=== PATIENT | male | born 1935 | race Caucasian/White ===

== ENCOUNTER 2019-02-07 16:56 | Inpatient (IN) ==
[2019-02-07] MEDS ORDERED: NALOXONE 0.4 MG/ML VIAL IV PRN (17:34)
[2019-02-07] MEDS ORDERED: traMADol 50 MG TABLET PO PRN (17:34)
[2019-02-07] MEDS ORDERED: ACETAMINOPHEN 325 MG TABLET PO PRN (17:34)
[2019-02-07] MEDS ORDERED: ONDANSETRON 4 MG/2 ML VIAL IV PRN (17:34)
[2019-02-07] MEDS ORDERED: AZITHROMYCIN INJ 500 MG in SODIUM CHLORIDE 0.9% 250 ML IV ONE (17:37)
[2019-02-07] MEDS: methylPREDNISolone SOD SUC 40 MG/1 ML VIAL IV SCH (18:51)
[2019-02-07] MEDS: cefTRIAXone 1,000 MG in SYRINGE 1 EACH IV SCH (18:52)
[2019-02-07] MEDS: SODIUM CHLORIDE 0.9% 1,000 ML IV SCH (19:00)
[2019-02-07] MEDS: ALBUTEROL/IPRATROPIUM 3 ML NEB RESP TX SCH (19:40)
[2019-02-07] MEDS ORDERED: ENOXAPARIN 30 MG/0.3 ML SYRINGE SUBCUT SCH (21:00)
[2019-02-07] MEDS: DOCUSATE SODIUM 100 MG CAPSULE PO SCH (22:20)
[2019-02-08] MEDS: ALBUTEROL/IPRATROPIUM 3 ML NEB RESP TX SCH ×4 (00:45→19:26)
[2019-02-08] MEDS: ALBUTEROL 2.5 MG/3 ML NEB RESP TX PRN (04:43)
[2019-02-08] MEDS: methylPREDNISolone SOD SUC 40 MG/1 ML VIAL IV SCH ×2 (05:52→17:45)
[2019-02-08 05:53] LABS: Basophils # 0.1 10*3/uL (0.0-0.2); Basophils % 0.3 % (0.0-0.8); Hematocrit 39.4 VOL% (42.0-52.0); Hemoglobin 12.9 GM/DL (14.0-18.0); Immature Granulocytes % 0.8 %; Immature Granulocytes Absolute 0.18 #; Lymphocytes # 1.1 10*3/uL (1.4-4.0); Lymphocytes % 5.2 % (21.2-54.2); Mean Corpuscular HGB Conc 32.7 GM/DL (32-36); Mean Corpuscular Volume 92.3 FL (87-102); Mean Platelet Volume 11.4 FL (9.6-12.0); Monocytes % 6.1 % (1.7-12.7); Neutrophils % 87.6 % (38.7-73.9); Platelet Count 151 T/CUMM (130-400); Red Blood Count 4.27 MC/CUMM (3.8-5.5); White Blood Count 21.7 T/CUMM (4-12)
[2019-02-08 06:15] LABS: Band Neutrophils 1 % (0-10); Hypochromasia 1+; Lymphocytes 6 % (20-55); Platelet Estimate Adequate; Segmented Neutrophils 89 % (50-85); Total Cells Counted 100
[2019-02-08 06:17] LABS: Calcium 8.8 MG/DL (8.5-10.1); Osmolality,Calculated 284.5 MOS/KG (273-304)
[2019-02-08] MEDS: ASPIRIN EC 81 MG TABLET PO SCH (09:48)
[2019-02-08] MEDS: AMIODARONE 200 MG TABLET PO SCH (09:48)
[2019-02-08] MEDS: LOSARTAN 50 MG TABLET PO SCH (09:49)
[2019-02-08] MEDS: FINASTERIDE 5 MG TABLET PO SCH (09:49)
[2019-02-08] MEDS: DOCUSATE SODIUM 100 MG CAPSULE PO SCH ×2 (09:49→21:43)
[2019-02-08] MEDS: PANTOPRAZOLE 40 MG TABLET PO SCH (09:49)
[2019-02-08] MEDS: THEOPHYLLINE ER (24 HR) 200 MG CAPSULE PO SCH (09:50)
[2019-02-08] MEDS: MAGNESIUM OXIDE 400 MG TABLET PO SCH ×2 (09:50→21:43)
[2019-02-08] MEDS: ALFUZOSIN 10 MG TABLET PO SCH (09:50)
[2019-02-08] MEDS: MONTELUKAST 10 MG TABLET PO SCH (09:50)
[2019-02-08] MEDS: carvediloL 3.125 MG TABLET PO SCH ×2 (09:50→17:45)
[2019-02-08] MEDS: cefTRIAXone 1,000 MG in SYRINGE 1 EACH IV SCH (17:45)
[2019-02-08] MEDS: AZITHROMYCIN INJ 250 MG in SODIUM CHLORIDE 0.9% 250 ML IV SCH (17:45)
[2019-02-08] MEDS: ENOXAPARIN 40 MG/0.4 ML SYRINGE SUBCUT SCH (21:43)
[2019-02-09] MEDS: ALBUTEROL/IPRATROPIUM 3 ML NEB RESP TX SCH ×4 (00:12→20:03)
[2019-02-09 05:07] LABS: Basophils % 0.1 % (0.0-0.8); Hematocrit 38.6 VOL% (42.0-52.0); Hemoglobin 12.5 GM/DL (14.0-18.0); Immature Granulocytes % 0.7 %; Immature Granulocytes Absolute 0.13 #; Lymphocytes # 0.9 10*3/uL (1.4-4.0); Lymphocytes % 4.5 % (21.2-54.2); Mean Corpuscular HGB Conc 32.4 GM/DL (32-36); Mean Corpuscular Volume 93.2 FL (87-102); Monocytes % 5.6 % (1.7-12.7); Neutrophils % 89.1 % (38.7-73.9); Platelet Count 152 T/CUMM (130-400); Red Blood Count 4.14 MC/CUMM (3.8-5.5); White Blood Count 19.3 T/CUMM (4-12)
[2019-02-09 05:29] LABS: Hypochromasia Slight; Lymphocytes 9 % (20-55); Ovalocytes Slight; Platelet Estimate Adequate; Segmented Neutrophils 88 % (50-85); Total Cells Counted 100
[2019-02-09] MEDS: methylPREDNISolone SOD SUC 40 MG/1 ML VIAL IV SCH ×2 (06:22→21:02)
[2019-02-09] MEDS: AMIODARONE 200 MG TABLET PO SCH (09:40)
[2019-02-09] MEDS: MAGNESIUM OXIDE 400 MG TABLET PO SCH ×2 (09:40→20:57)
[2019-02-09] MEDS: THEOPHYLLINE ER (24 HR) 200 MG CAPSULE PO SCH (09:40)
[2019-02-09] MEDS: ALFUZOSIN 10 MG TABLET PO SCH (09:40)
[2019-02-09] MEDS: PANTOPRAZOLE 40 MG TABLET PO SCH (09:41)
[2019-02-09] MEDS: DOCUSATE SODIUM 100 MG CAPSULE PO SCH ×2 (09:41→20:58)
[2019-02-09] MEDS: ASPIRIN EC 81 MG TABLET PO SCH (09:41)
[2019-02-09] MEDS: MONTELUKAST 10 MG TABLET PO SCH (09:41)
[2019-02-09] MEDS: LOSARTAN 50 MG TABLET PO SCH (09:41)
[2019-02-09] MEDS: carvediloL 3.125 MG TABLET PO SCH ×2 (09:41→17:08)
[2019-02-09] MEDS: FINASTERIDE 5 MG TABLET PO SCH (09:42)
[2019-02-09] MEDS: SODIUM CHLORIDE 0.9% 1,000 ML IV SCH ×2 (12:39→12:40)
[2019-02-09] MEDS: cefTRIAXone 1,000 MG in SYRINGE 1 EACH IV SCH (17:07)
[2019-02-09] MEDS: AZITHROMYCIN INJ 250 MG in SODIUM CHLORIDE 0.9% 250 ML IV SCH (17:08)
[2019-02-09] MEDS: ENOXAPARIN 40 MG/0.4 ML SYRINGE SUBCUT SCH (20:58)
[2019-02-10] MEDS: ALBUTEROL/IPRATROPIUM 3 ML NEB RESP TX SCH ×4 (01:11→19:26)
[2019-02-10 03:55] LABS: Basophils % 0.1 % (0.0-0.8); Hematocrit 39.6 VOL% (42.0-52.0); Hemoglobin 12.7 GM/DL (14.0-18.0); Immature Granulocytes % 0.8 %; Immature Granulocytes Absolute 0.12 #; Lymphocytes # 0.8 10*3/uL (1.4-4.0); Lymphocytes % 4.9 % (21.2-54.2); Mean Corpuscular HGB Conc 32.1 GM/DL (32-36); Mean Corpuscular Volume 93.4 FL (87-102); Mean Platelet Volume 10.7 FL (9.6-12.0); Monocytes % 4.3 % (1.7-12.7); Neutrophils % 89.9 % (38.7-73.9); Platelet Count 162 T/CUMM (130-400); Red Blood Count 4.24 MC/CUMM (3.8-5.5); Red Cell Distribution Width 13.9 % (9.3-17.3); White Blood Count 15.9 T/CUMM (4-12)
[2019-02-10 04:43] LABS: Hypochromasia 1+; Lymphocytes 1 % (20-55); Platelet Estimate Adequate; Segmented Neutrophils 96 % (50-85); Total Cells Counted 100
[2019-02-10] MEDS: DORNASE ALFA 2.5 MG/2.5 ML VIAL RESP TX SCH ×2 (09:23→19:26)
[2019-02-10] MEDS: BUDESONIDE 0.25 MG/2 ML NEB RESP TX SCH ×2 (09:23→19:26)
[2019-02-10] MEDS: ALFUZOSIN 10 MG TABLET PO SCH (09:25)
[2019-02-10] MEDS: THEOPHYLLINE ER (24 HR) 200 MG CAPSULE PO SCH (09:25)
[2019-02-10] MEDS: AMIODARONE 200 MG TABLET PO SCH (09:25)
[2019-02-10] MEDS: ALBUTEROL 2.5 MG/3 ML NEB RESP TX PRN (09:25)
[2019-02-10] MEDS: MONTELUKAST 10 MG TABLET PO SCH (09:26)
[2019-02-10] MEDS: MAGNESIUM OXIDE 400 MG TABLET PO SCH ×2 (09:26→21:12)
[2019-02-10] MEDS: ASPIRIN EC 81 MG TABLET PO SCH (09:26)
[2019-02-10] MEDS: PANTOPRAZOLE 40 MG TABLET PO SCH (09:26)
[2019-02-10] MEDS: carvediloL 3.125 MG TABLET PO SCH ×2 (09:26→16:56)
[2019-02-10] MEDS: DOCUSATE SODIUM 100 MG CAPSULE PO SCH ×2 (09:26→21:13)
[2019-02-10] MEDS: LOSARTAN 50 MG TABLET PO SCH (09:26)
[2019-02-10] MEDS: FINASTERIDE 5 MG TABLET PO SCH (09:26)
[2019-02-10] MEDS: methylPREDNISolone SOD SUC 40 MG/1 ML VIAL IV SCH (09:27)
[2019-02-10] MEDS: SODIUM CHLORIDE 0.9% 1,000 ML IV SCH (12:16)
[2019-02-10] MEDS: cefTRIAXone 1,000 MG in SYRINGE 1 EACH IV SCH (17:00)
[2019-02-10] MEDS: AZITHROMYCIN INJ 250 MG in SODIUM CHLORIDE 0.9% 250 ML IV SCH (17:00)
[2019-02-10] MEDS: ENOXAPARIN 40 MG/0.4 ML SYRINGE SUBCUT SCH (21:13)
[2019-02-11] MEDS: methylPREDNISolone SOD SUC 40 MG/1 ML VIAL IV SCH ×2 (00:08→12:04)
[2019-02-11] MEDS: ALBUTEROL/IPRATROPIUM 3 ML NEB RESP TX SCH ×2 (01:45→08:22)
[2019-02-11] MEDS: SODIUM CHLORIDE 0.9% 1,000 ML IV SCH (04:30)
[2019-02-11 05:43] LABS: Basophils % 0.1 % (0.0-0.8); Hematocrit 38.7 VOL% (42.0-52.0); Hemoglobin 12.8 GM/DL (14.0-18.0); Immature Granulocytes % 1.1 %; Immature Granulocytes Absolute 0.12 #; Lymphocytes # 0.8 10*3/uL (1.4-4.0); Lymphocytes % 7.2 % (21.2-54.2); Mean Corpuscular HGB Conc 33.1 GM/DL (32-36); Mean Corpuscular Volume 91.3 FL (87-102); Mean Platelet Volume 10.7 FL (9.6-12.0); Monocytes % 4.7 % (1.7-12.7); Neutrophils % 86.9 % (38.7-73.9); Platelet Count 177 T/CUMM (130-400); Red Blood Count 4.24 MC/CUMM (3.8-5.5); Red Cell Distribution Width 13.7 % (9.3-17.3)
[2019-02-11 05:59] LABS: Calcium 8.7 MG/DL (8.5-10.1); Osmolality,Calculated 286.3 MOS/KG (273-304)
[2019-02-11] MEDS: MONTELUKAST 10 MG TABLET PO SCH (08:20)
[2019-02-11] MEDS: MAGNESIUM OXIDE 400 MG TABLET PO SCH (08:20)
[2019-02-11] MEDS: DOCUSATE SODIUM 100 MG CAPSULE PO SCH (08:20)
[2019-02-11] MEDS: FINASTERIDE 5 MG TABLET PO SCH (08:20)
[2019-02-11] MEDS: ASPIRIN EC 81 MG TABLET PO SCH (08:20)
[2019-02-11] MEDS: LOSARTAN 50 MG TABLET PO SCH (08:20)
[2019-02-11] MEDS: AMIODARONE 200 MG TABLET PO SCH (08:20)
[2019-02-11] MEDS: PANTOPRAZOLE 40 MG TABLET PO SCH (08:21)
[2019-02-11] MEDS: ALFUZOSIN 10 MG TABLET PO SCH (08:21)
[2019-02-11] MEDS: THEOPHYLLINE ER (24 HR) 200 MG CAPSULE PO SCH (08:21)
[2019-02-11] MEDS: carvediloL 3.125 MG TABLET PO SCH (08:22)
[2019-02-11] MEDS: BUDESONIDE 0.25 MG/2 ML NEB RESP TX SCH (08:22)
[2019-02-11] MEDS: DORNASE ALFA 2.5 MG/2.5 ML VIAL RESP TX SCH (08:32)
[2019-02-11 12:04] VITALS: BP 151/58
== END 2019-02-11 13:15 | disposition home or self-care (01) | DRG 190 ==
LOC: N.2E 17:02
PROVIDERS: ADMIT Family Medicine; ATTEND Family Medicine

== ENCOUNTER 2020-07-24 07:28 | Inpatient (IN) ==
[2020-07-19 11:31] LABS: Basophils # 0.1 10*3/uL (0.0-0.2); Basophils % 0.7 % (0.0-0.8); Eosinophils # 0.1 10*3/uL (0.0-0.87); Eosinophils % 1.1 % (0.00-10.9); Hematocrit 42.7 VOL% (42.0-52.0); Immature Granulocytes % 0.5 %; Immature Granulocytes Absolute 0.04 #; Lymphocytes # 1.9 10*3/uL (1.4-4.0); Lymphocytes % 23.5 % (21.2-54.2); Mean Corpuscular HGB Conc 32.8 GM/DL (32-36); Mean Corpuscular Volume 90.3 FL (87-102); Mean Platelet Volume 10.6 FL (9.6-12.0); Monocytes % 7.8 % (1.7-12.7); Neutrophils % 66.4 % (38.7-73.9); Platelet Count 135 T/CUMM (130-400); Red Blood Count 4.73 MC/CUMM (3.8-5.5); Red Cell Distribution Width 14.3 % (9.3-17.3); White Blood Count 8.3 T/CUMM (4-12)
[2020-07-19 11:39] LABS: INR 0.9; PT Patient Result 10.7 SECS (9.8-11.9); Partial Thromboplastin Time 26.9 SECS (23.9-33.8)
[2020-07-19 11:50] LABS: Bilirubin,Total 0.6 MG/DL (0.2-1.0); Calcium 9.1 MG/DL (8.5-10.1); Osmolality,Calculated 273.8 MOS/KG (273-304); Potassium 4.6 MMOL/L (3.5-5.1)
[2020-07-19 11:51] LABS: Platelet Estimate Adequate
[~2020-07-24 07:28] MED LIST: ceFAZolin 2,000 MG in PREMIX 1 EACH IV ONE
[2020-07-24] MEDS ORDERED: LACTATED RINGERS 1,000 ML IV SCH (10:00)
[2020-07-24] MEDS ORDERED: FAMOTIDINE 20 MG TABLET PO STA (10:30)
[2020-07-24] MEDS ORDERED: ACETAMINOPHEN 500 MG TABLET PO STA (10:30)
[2020-07-24] MEDS ORDERED: DIAZEPAM 10 MG/2 ML SYRINGE IV STA ×2 (10:30→10:32)
[2020-07-24] MEDS ORDERED: propofoL 200 MG/20 ML VIAL IV ONE (10:37)
[2020-07-24] MEDS ORDERED: SEVOFLURANE 1 UNIT/15 MINUTE INH ONE (10:37)
[2020-07-24] MEDS ORDERED: ROCURONIUM 50 MG/5 ML VIAL IV ONE (10:37)
[2020-07-24] MEDS ORDERED: ONDANSETRON 4 MG/2 ML VIAL ONE (10:37)
[2020-07-24] MEDS ORDERED: DIAZEPAM 5 MG TABLET ONE (10:37)
[2020-07-24] MEDS ORDERED: ETOMIDATE 40 MG/20 ML VIAL IV ONE (10:37)
[2020-07-24] MEDS ORDERED: LIDOCAINE 2% 5 ML VIAL ONE (10:37)
[2020-07-24] MEDS ORDERED: MIDAZOLAM 2 MG/2 ML VIAL ONE (10:38)
[2020-07-24] MEDS ORDERED: fentaNYL 100 MCG/2 ML VIAL ONE (10:38)
[2020-07-24] MEDS ORDERED: DIAZEPAM 5 MG TABLET PO STA (10:39)
[2020-07-24] MEDS ORDERED: LIDOCAINE 1% 5 ML VIAL ONE (10:48)
[2020-07-24] MEDS ORDERED: HEPARIN/NACL 0.9% 2 UNITS/ML 1,000 UNIT/500 ML BAG IV ONE (10:48)
[2020-07-24] MEDS ORDERED: ROPIVACAINE 0.5% 30 ML VIAL ONE (10:48)
[2020-07-24] MEDS ORDERED: SUGAMMADEX 200 MG/2 ML VIAL IV ONE (13:04)
[2020-07-24] MEDS ORDERED: TISSUE ADHESIVE 1 EACH APPLICATOR TOP ONE (13:05)
[2020-07-24] MEDS ORDERED: LACTATED RINGERS 1,000 ML IV ONE (13:21)
[2020-07-24] MEDS ORDERED: HYDROmorphone 2 MG/1 ML VIAL IV PRN (13:27)
[2020-07-24] MEDS ORDERED: KETOROLAC 10 MG TABLET PO PRN (13:27)
[2020-07-24] MEDS ORDERED: ONDANSETRON 4 MG/2 ML VIAL IV PRN ×2 (13:27→14:32)
[2020-07-24] MEDS ORDERED: ALBUTEROL/IPRATROPIUM 3 ML NEB RESP TX PRN (14:15)
[2020-07-24] MEDS ORDERED: ALBUTEROL/IPRATROPIUM 3 ML NEB RESP TX ONE (14:33)
[2020-07-24] MEDS: HYDROmorphone 2 MG/1 ML VIAL IV PRN ×2 (14:38→14:45)
[2020-07-24] MEDS: ALBUTEROL/IPRATROPIUM 3 ML NEB RESP TX SCH (20:18)
[2020-07-24] MEDS: carvediloL 3.125 MG TABLET PO SCH (20:32)
[2020-07-24] MEDS: MAGNESIUM OXIDE 400 MG TABLET PO SCH (20:33)
[2020-07-25] MEDS: LACTATED RINGERS 1,000 ML IV SCH ×2 (01:30→04:06)
[2020-07-25] MEDS: ALBUTEROL/IPRATROPIUM 3 ML NEB RESP TX SCH ×4 (02:07→19:02)
[2020-07-25 05:59] LABS: Basophils # 0.1 10*3/uL (0.0-0.2); Basophils % 0.7 % (0.0-0.8); Eosinophils # 0.1 10*3/uL (0.0-0.87); Hematocrit 40.4 VOL% (42.0-52.0); Hemoglobin 13.1 GM/DL (14.0-18.0); Immature Granulocytes % 0.3 %; Immature Granulocytes Absolute 0.03 #; Lymphocytes # 1.4 10*3/uL (1.4-4.0); Lymphocytes % 13.2 % (21.2-54.2); Mean Corpuscular HGB Conc 32.4 GM/DL (32-36); Mean Corpuscular Volume 92.2 FL (87-102); Mean Platelet Volume 11.6 FL (9.6-12.0); Monocytes % 10.2 % (1.7-12.7); Neutrophils % 74.6 % (38.7-73.9); Platelet Count 70 T/CUMM (130-400); Red Blood Count 4.38 MC/CUMM (3.8-5.5); Red Cell Distribution Width 14.4 % (9.3-17.3); White Blood Count 10.9 T/CUMM (4-12)
[2020-07-25 06:26] LABS: Calcium 8.9 MG/DL (8.5-10.1); Osmolality,Calculated 268.2 MOS/KG (273-304); Potassium 5.2 MMOL/L (3.5-5.1)
[2020-07-25] MEDS: MAGNESIUM OXIDE 400 MG TABLET PO SCH ×2 (09:10→21:10)
[2020-07-25] MEDS: CLOPIDOGREL 75 MG TABLET PO SCH (09:10)
[2020-07-25] MEDS: ZINC GLUCONATE 50 MG TABLET PO SCH (09:10)
[2020-07-25] MEDS: carvediloL 3.125 MG TABLET PO SCH ×2 (09:11→21:11)
[2020-07-25] MEDS: SILODOSIN 8 MG CAPSULE PO SCH (09:11)
[2020-07-25] MEDS: ASPIRIN EC 81 MG TABLET PO SCH (09:11)
[2020-07-25] MEDS: THEOPHYLLINE ER (24 HR) 400 MG CAPSULE PO SCH (09:11)
[2020-07-25] MEDS: CHOLECALCIFEROL 1,000 UNIT TABLET PO SCH (09:11)
[2020-07-25] MEDS: CYANOCOBALAMIN 500 MCG TABLET PO SCH (09:12)
[2020-07-25] MEDS: ASCORBIC ACID 500 MG TABLET PO SCH (09:12)
[2020-07-25] MEDS: LOSARTAN 50 MG TABLET PO SCH (09:13)
[2020-07-25] MEDS: PANTOPRAZOLE 40 MG TABLET PO SCH (09:13)
[2020-07-25] MEDS: AMIODARONE 200 MG TABLET PO SCH (09:14)
[2020-07-25] MEDS: ENOXAPARIN 40 MG/0.4 ML SYRINGE SUBCUT SCH (09:14)
[2020-07-25] MEDS: MONTELUKAST 10 MG TABLET PO PRN (09:28)
[2020-07-25] MEDS ORDERED: ROSUVASTATIN 20 MG TABLET PO SCH (21:00)
[2020-07-26] MEDS: ALBUTEROL/IPRATROPIUM 3 ML NEB RESP TX SCH ×2 (00:33→06:56)
[2020-07-26 08:06] VITALS: BP 133/60
[2020-07-26 08:59] LABS: Basophils # 0.1 10*3/uL (0.0-0.2); Basophils % 0.6 % (0.0-0.8); Eosinophils # 0.1 10*3/uL (0.0-0.87); Hematocrit 38.7 VOL% (42.0-52.0); Hemoglobin 12.1 GM/DL (14.0-18.0); Immature Granulocytes % 0.4 %; Immature Granulocytes Absolute 0.04 #; Lymphocytes # 1.3 10*3/uL (1.4-4.0); Lymphocytes % 12.6 % (21.2-54.2); Mean Corpuscular HGB Conc 31.3 GM/DL (32-36); Mean Corpuscular Volume 92.8 FL (87-102); Mean Platelet Volume 10.4 FL (9.6-12.0); Neutrophils % 72.4 % (38.7-73.9); Platelet Count 141 T/CUMM (130-400); Red Blood Count 4.17 MC/CUMM (3.8-5.5); Red Cell Distribution Width 14.6 % (9.3-17.3); White Blood Count 10.6 T/CUMM (4-12)
[2020-07-26] MEDS: ENOXAPARIN 40 MG/0.4 ML SYRINGE SUBCUT SCH (09:04)
[2020-07-26] MEDS: CLOPIDOGREL 75 MG TABLET PO SCH (09:05)
[2020-07-26] MEDS: ASCORBIC ACID 500 MG TABLET PO SCH (09:05)
[2020-07-26] MEDS: ASPIRIN EC 81 MG TABLET PO SCH (09:05)
[2020-07-26] MEDS: AMIODARONE 200 MG TABLET PO SCH (09:05)
[2020-07-26] MEDS: LOSARTAN 50 MG TABLET PO SCH (09:05)
[2020-07-26] MEDS: CYANOCOBALAMIN 500 MCG TABLET PO SCH (09:05)
[2020-07-26] MEDS: ZINC GLUCONATE 50 MG TABLET PO SCH (09:05)
[2020-07-26] MEDS: CHOLECALCIFEROL 1,000 UNIT TABLET PO SCH (09:05)
[2020-07-26] MEDS: THEOPHYLLINE ER (24 HR) 400 MG CAPSULE PO SCH (09:06)
[2020-07-26] MEDS: MAGNESIUM OXIDE 400 MG TABLET PO SCH (09:06)
[2020-07-26] MEDS: carvediloL 3.125 MG TABLET PO SCH (09:06)
[2020-07-26] MEDS: MONTELUKAST 10 MG TABLET PO PRN (09:06)
[2020-07-26] MEDS: SILODOSIN 8 MG CAPSULE PO SCH (09:06)
[2020-07-26] MEDS: PANTOPRAZOLE 40 MG TABLET PO SCH (09:08)
[2020-07-26 09:15] LABS: Microcytosis Slight; Platelet Estimate Adequate
== END 2020-07-26 11:00 | disposition home or self-care (01) | DRG 168 ==
LOC: N.OR 07:28 → N.SDSINP 09:31 → N.4E 14:55
PROVIDERS: ADMIT Surgery; ATTEND Surgery